=== PATIENT | male | born 1990 | race Caucasian/White ===

== ENCOUNTER 2018-07-08 12:41 | Day surgery (SDC) | payer OTHER ==
[~2018-07-08] VITALS: Ht 193 cm; Wt 92.0 kg
[2018-07-08] VITALS (8 sets, daily range): BP systolic 127–165; BP diastolic 53–99
[~2018-07-08 12:41] MED LIST: clindamycin 600mg/D5W 50ml 50 ML IV ONE; famotidine 20mg tablet PO ONE; ringers solution, lacted 1,000 ML IV SCH
[2018-07-08] MEDS ORDERED: BUPIVAcaine/PF 2.5mg/ml (0.25%) 10ml vial ONE (14:51)
[2018-07-08] MEDS ORDERED: ROPIVAcaine 0.5% (5mg/ml) 30ml vial ONE (14:58)
[2018-07-08] MEDS ORDERED: LIDOcaine 0.5% (5mg/ml) 50ml vial ONE (14:58)
[2018-07-08] MEDS ORDERED: MIDAZolam 1mg/ml 10ml vial ONE (15:00)
[2018-07-08] MEDS ORDERED: fentaNYL/PF 50MCG/1 ML 2ML syringe ONE (15:00)
[2018-07-08] MEDS ORDERED: ringers solution, lacted 1,000 ML IV SCH (15:07)
[2018-07-08] MEDS ORDERED: hydrALAZINE 20mg/ml inj. IV PRN (15:10)
[2018-07-08] MEDS ORDERED: ondansetron/PF 4mg/2ml inj IV PRN (15:10)
[2018-07-08] MEDS ORDERED: meperidine/PF 25mg/ml syringe IV PRN ×2 (15:10)
[2018-07-08] MEDS ORDERED: morphine 4 MG/ML inj SYRINge IV PRN ×2 (15:10)
[2018-07-08] MEDS ORDERED: labetalol 20mg/4ml (5mg/ml) syringe IV PRN (15:10)
[2018-07-08] MEDS ORDERED: labetalol 5mg/ml 20ml inj. IV PRN (15:10)
[2018-07-08] MEDS ORDERED: propofol inj 20 ML IV ONE ×2 (15:25)
[2018-07-08] MEDS ORDERED: LIDOcaine 2% (20mg/ml) 5ml vial ONE (15:25)
== END 2018-07-08 17:39 | disposition home or self-care (01) ==
LOC: PAS 12:41
PROVIDERS: ATTEND Orthopaedic Surgery Hand Surgery
DX: S56.022A Laceration of flexor muscle, fascia and tendon of left thumb at forearm level, initial encounter (principal); S64.32XA Injury of digital nerve of left thumb, initial encounter; Z72.89 Other problems related to lifestyle; Z98.890 Other specified postprocedural states; Z88.8 Allergy status to other drugs, medicaments and biological substances; W45.8XXA Other foreign body or object entering through skin, initial encounter; Y93.89 Activity, other specified; Y92.89 Other specified places as the place of occurrence of the external cause; Y99.8 Other external cause status
CPT/HCPCS: 26356; 64831; A6222; A6449; J2001; J2250; J2704; J2795; J3010; J3490; J7120; A7000